=== PATIENT | female | born 1985 | race Caucasian/White ===

== ENCOUNTER 2022-09-19 15:38 | Day surgery (SDC) | payer OTHER ==
[2022-09-19 16:20] VITALS: BMI 31.1
[2022-09-19] MEDS ORDERED: hydrALAZINE 20 MG/ML VIAL SLOW IVP PRN (16:47)
[2022-09-19 18:13] LABS: #Monocytes 1.2 10x3/uL (0.0-1.1); #Neutrophils 10.3 10x3/uL (1.5-8.4); %Basophils 0.3 % (0.0-2.0); %Eosinophils 0.2 % (0.0-6.0); %Lymphocytes 14.5 % (18.0-47.0); Hemoglobin 12.3 g/dL (12.0-15.5); Mean Corpuscular HGB CONC 33.9 g/dL (32.0-36.0); Mean Corpuscular Hemoglobin 32.7 pg (27.0-33.0); Mean Corpuscular Volume 96.5 fl (81.6-98.3); Mean Platelet Volume 10.1 fl (7.4-10.4); Platelet Count 221 10x3/uL (150-450); RBC Distribution Width 13.7 % (11.5-14.5); Red Blood Cell (RBC) Count 3.76 10x6/uL (3.90-5.03); White Blood Cell (WBC) Count 13.7 10x3/uL (3.5-10.5)
[2022-09-19 18:23] LABS: ALT (SGPT) 21 U/L (8-55); AST (SGOT) 21 U/L (5-34); Albumin 3.6 g/dL (3.5-5.0); Alkaline Phosphatase 99 U/L (40-110); Anion Gap 13 mmol/L (10-20); BUN (Urea Nitrogen) 13 mg/dL (7.0-18.7); Bilirubin, Total 0.3 mg/dL (0.2-1.2); Calc. Creatinine Clearance 162 mL/min (70-130); Carbon Dioxide 22 mmol/L (22-29); Chloride 104 mmol/L (98-107); Estimated GFR 110; Globulin 3.2 g/dL (2.4-3.5); Glucose 79 mg/dL (70-105); Potassium 4.4 mmol/L (3.5-5.1); Protein, Total 6.8 g/dL (6.0-8.3); Sodium 135 mmol/L (136-145)
[2022-09-19 18:42] LABS: Bilirubin Neg (Negative); Blood, Urine Negative (Negative); Clarity Clear (Clear); Glucose, Urine (Dipstick) Normal (Negative); Ketone, Urine Negative (Negative); Leukocyte Negative (Negative); Nitrite Negative (Negative); Protein, Urine (Dipstick) Negative (Neg-Trace); Urobilinogen Normal mg/dL (Less than 2); pH, Urine 6.5 (5.0-9.0)
== END 2022-09-19 20:17 | disposition home or self-care (01) ==
LOC: CSHLD/OP 15:38
PROVIDERS: ATTEND Obstetrics & Gynecology
DX: O36.8130 Decreased fetal movements, third trimester, not applicable or unspecified (principal); O99.891 Other specified diseases and conditions complicating pregnancy; R19.7 Diarrhea, unspecified; Z88.8 Allergy status to other drugs, medicaments and biological substances; Z3A.31 31 weeks gestation of pregnancy
CPT/HCPCS: 36415; 76819; 80053; 81003; 85025; 99283

== ENCOUNTER 2022-11-11 13:03 | Inpatient (IN) | payer OTHER ==
[2022-11-12] MEDS ORDERED: hydrALAZINE 20 MG/ML VIAL SLOW IVP PRN (01:28)
[2022-11-12] MEDS ORDERED: Diphenoxylate HCl/Atropine Tablet PO PRN ×2 (01:28)
[2022-11-12] MEDS ORDERED: Methylergonovine 0.2 MG/ML VIAL IM PRN (01:28)
[2022-11-12] MEDS ORDERED: Ondansetron PF 4 MG/2 ML Vial IVP PRN ×2 (01:28→16:41)
[2022-11-12] MEDS ORDERED: Zolpidem Tartrate 5 MG TAB PO PRN (01:28)
[2022-11-12] MEDS ORDERED: Ibuprofen 800 MG TAB PO PRN (01:28)
[2022-11-12] MEDS ORDERED: Carboprost 250 MCG/ML AMP IM PRN (01:28)
[2022-11-12] MEDS ORDERED: Lidocaine 1% (PF) 30 ML VIAL SC PRN (01:28)
[2022-11-12] MEDS ORDERED: Tranexamic Acid 1,000 MG/10 ML VIAL IVP PRN (01:28)
[2022-11-12] MEDS ORDERED: Promethazine HCl 25 MG/ML VIAL IM PRN ×2 (01:28→16:41)
[2022-11-12] MEDS ORDERED: HYDROcodone/Acetaminophen 5/325 mg Tablet PO PRN ×2 (01:28)
[2022-11-12] MEDS ORDERED: Butorphanol Tartrate 1 MG/ML VIAL SLOW IVP PRN (01:28)
[2022-11-12] MEDS ORDERED: Acetaminophen 500 MG TAB PO PRN (01:28)
[2022-11-12] MEDS ORDERED: Misoprostol 200 MCG TAB PR PRN (01:28)
[2022-11-12 01:29] VITALS: BMI 34.2
[2022-11-12] MEDS ORDERED: NS w/ Oxytocin 30 units 500 ML IV SCH (01:30)
[2022-11-12 02:07] LABS: Hemoglobin 12.9 g/dL (12.0-15.5); Mean Corpuscular HGB CONC 34.8 g/dL (32.0-36.0); Mean Corpuscular Hemoglobin 33.3 pg (27.0-33.0); Mean Corpuscular Volume 95.9 fl (81.6-98.3); Mean Platelet Volume 11.2 fl (7.4-10.4); Platelet Count 233 10x3/uL (150-450); RBC Distribution Width 13.7 % (11.5-14.5); Red Blood Cell (RBC) Count 3.87 10x6/uL (3.90-5.03); White Blood Cell (WBC) Count 10.8 10x3/uL (3.5-10.5)
[2022-11-12] MEDS: Misoprostol 100 MCG TAB VAG SCH (02:29)
[2022-11-12 02:40] LABS: HBSAg Index 0.12 S/CO (0-0.99); Hep B Surf Ag - L&D Non-Reactive S/CO (NonReactive)
[2022-11-12 02:42] LABS: Syphilis Antibody Nonreactive (Nonreactive); Syphilis Antibody Index 0.06 S/CO (<1.00 Non-Reactive)
[2022-11-12] MEDS ORDERED: Bupivacaine HCl 0.5%/Epinephrine 1:200,000/PF 30 ml Vial ONE (08:00)
[2022-11-12] MEDS ORDERED: ePHEDrine Sulfate 50 MG/10 ML VIAL ONE (08:00)
[2022-11-12] MEDS ORDERED: Bupivacaine/Epinephrine 0.25% 30 ML VIAL ONE (08:00)
[2022-11-12] MEDS ORDERED: Fentanyl 2 mcg/Bup 0.1% Cadd 100 ML ONE (15:50)
[2022-11-12] MEDS ORDERED: Fentanyl 100 MCG/2 ML VIAL ONE (16:03)
[2022-11-12] MEDS ORDERED: Acetaminophen 325 MG TAB PO PRN (16:41)
[2022-11-12] MEDS ORDERED: ePHEDrine Sulfate 50 MG/10 ML VIAL SLOW IVP PRN (16:41)
[2022-11-12] MEDS ORDERED: Naloxone HCl 0.4 mg/ml Vial IVP PRN ×2 (16:41)
[2022-11-12] MEDS ORDERED: Lactated Ringer's 500 ML IV PRN (16:41)
[2022-11-12] MEDS ORDERED: Moisturizing Cream (Eucerin) 113 GM JAR TOP PRN (16:41)
[2022-11-12] MEDS ORDERED: Communication Order-Pharmacy FS SCH (16:45)
[2022-11-12] MEDS: Fentanyl 2 mcg/Bupivacaine 0.1% Cassette 100 ML EPIDURAL SCH (22:50)
[2022-11-13] MEDS: Fentanyl 2 mcg/Bupivacaine 0.1% Cassette 100 ML EPIDURAL SCH (04:00)
[2022-11-13] MEDS ORDERED: CEFAZOLIN 1 GM VIAL ONE (04:49)
[2022-11-13] MEDS ORDERED: Azithromycin 500 MG VIAL ONE (04:50)
[2022-11-13] MEDS ORDERED: Famotidine/PF 20 mg/2ml Vial ONE (04:50)
[2022-11-13] MEDS: Lactated Ringer's 1,000 ML IV SCH ×4 (04:58→17:27)
[2022-11-13] MEDS ORDERED: Oxytocin 10 UNITS/ML VIAL ONE (06:08)
[2022-11-13] MEDS ORDERED: Ketorolac Tromethamine 30 MG/ML VIAL ONE (06:09)
[2022-11-13] MEDS ORDERED: Dexamethasone 4 mg/ml Vial ONE (06:09)
[2022-11-13] MEDS ORDERED: Ondansetron PF 4 MG/2 ML Vial ONE (06:09)
[2022-11-13] MEDS ORDERED: Promethazine HCl 25 MG/ML VIAL IM PRN ×2 (06:36→06:59)
[2022-11-13] MEDS ORDERED: Naloxone HCl 0.4 mg/ml Vial IVP PRN ×2 (06:36)
[2022-11-13] MEDS ORDERED: Promethazine HCl 25 MG SUPP PR PRN (06:36)
[2022-11-13] MEDS ORDERED: Naloxone HCl 0.4 mg/ml Vial IV PRN (06:36)
[2022-11-13] MEDS ORDERED: Moisturizing Cream (Eucerin) 113 GM JAR TOP PRN (06:36)
[2022-11-13] MEDS ORDERED: Fentanyl 100 MCG/2 ML VIAL SLOW IVP PRN (06:36)
[2022-11-13] MEDS ORDERED: Ondansetron PF 4 MG/2 ML Vial IVP PRN (06:36)
[2022-11-13] MEDS ORDERED: Meperidine HCl/PF 25 MG/ML VIAL SLOW IVP PRN (06:36)
[2022-11-13] MEDS ORDERED: Methylergonovine 0.2 MG/ML VIAL ONE (06:36)
[2022-11-13] MEDS ORDERED: Ondansetron HCl/PF 4 MG/2 ML Vial IVP PRN (06:36)
[2022-11-13] MEDS ORDERED: Ketorolac Tromethamine 30 MG/ML VIAL IVP SCH (06:45)
[2022-11-13] MEDS ORDERED: Communication Order-Pharmacy FS SCH (06:45)
[2022-11-13] MEDS ORDERED: Morphine PF 10 MG/10 ML VIAL ONE (06:51)
[2022-11-13] MEDS ORDERED: hydrALAZINE 20 MG/ML VIAL SLOW IVP PRN (06:59)
[2022-11-13] MEDS ORDERED: Bisacodyl 10 MG SUPP PR PRN (06:59)
[2022-11-13] MEDS ORDERED: Boostrix 0.5 ML (Tdap) VIAL (>/=7 yrs of age) IM ONE (06:59)
[2022-11-13] MEDS ORDERED: Methylergonovine 0.2 MG/ML VIAL IM PRN (06:59)
[2022-11-13] MEDS ORDERED: Simethicone Chewable 80 MG TAB PO PRN (06:59)
[2022-11-13] MEDS ORDERED: Misoprostol 200 MCG TAB PR PRN (06:59)
[2022-11-13] MEDS ORDERED: NS w/ Oxytocin 30 units 500 ML IV SCH (07:00)
[2022-11-13] MEDS ORDERED: Carboprost 250 MCG/ML AMP IM PRN (07:10)
[2022-11-13] MEDS: Ferrous Sulfate 325 MG TAB PO SCH ×2 (12:58→21:48)
[2022-11-13] MEDS: Docusate 100 MG CAP PO SCH ×2 (12:58→23:05)
[2022-11-13] MEDS: Prenatal Vitamin 1 TAB PO SCH (12:58)
[2022-11-13] MEDS: Misoprostol 100 MCG TAB VAG SCH (13:00)
[2022-11-13] MEDS: Ketorolac Tromethamine 30 MG/ML VIAL IVP PRN ×2 (17:28→23:08)
[2022-11-13] MEDS ORDERED: Diphenoxylate HCl/Atropine Tablet PO PRN (18:45)
[2022-11-13] MEDS ORDERED: Zolpidem Tartrate 5 MG TAB PO PRN (18:45)
[2022-11-13] MEDS: HYDROcodone/Acetaminophen 5/325 mg Tablet PO SCH (23:13)
[2022-11-14] MEDS: Lactated Ringer's 1,000 ML IV SCH ×3 (03:31→17:31)
[2022-11-14] MEDS: HYDROcodone/Acetaminophen 5/325 mg Tablet PO SCH ×4 (03:32→17:29)
[2022-11-14 04:05] LABS: Hemoglobin 10.9 g/dL (12.0-15.5); Mean Corpuscular HGB CONC 33.9 g/dL (32.0-36.0); Mean Corpuscular Volume 97.6 fl (81.6-98.3); Mean Platelet Volume 11.4 fl (7.4-10.4); Platelet Count 184 10x3/uL (150-450); White Blood Cell (WBC) Count 16.4 10x3/uL (3.5-10.5)
[2022-11-14] MEDS: Ferrous Sulfate 325 MG TAB PO SCH ×2 (08:32→21:40)
[2022-11-14] MEDS: Ibuprofen 800 MG TAB PO SCH ×2 (09:58→17:29)
[2022-11-14] MEDS: Prenatal Vitamin 1 TAB PO SCH (09:59)
[2022-11-14] MEDS: Docusate 100 MG CAP PO SCH ×2 (09:59→21:41)
[2022-11-15] MEDS: Lactated Ringer's 1,000 ML IV SCH (01:43)
[2022-11-15] MEDS: Ibuprofen 800 MG TAB PO SCH (01:45)
[2022-11-15] MEDS: HYDROcodone/Acetaminophen 5/325 mg Tablet PO SCH ×3 (02:41→08:18)
[2022-11-15] MEDS: Docusate 100 MG CAP PO SCH (08:08)
[2022-11-15] MEDS: Prenatal Vitamin 1 TAB PO SCH (08:08)
[2022-11-15 08:44] VITALS: BP 117/60; TEMP 97.9
== END 2022-11-15 11:00 | disposition home or self-care (01) | DRG 787 ==
LOC: CSHLD 11-12 01:06 → CSHPP 11-13 13:30
PROVIDERS: ADMIT Obstetrics & Gynecology; ATTEND Obstetrics & Gynecology
PROC: 10D00Z1 Extraction of Products of Conception, Low, Open Approach (ICD-10-PCS; principal; 2022-11-13)
DX: O64.0XX0 Obstructed labor due to incomplete rotation of fetal head, not applicable or unspecified (principal); D62 Acute posthemorrhagic anemia; Z3A.39 39 weeks gestation of pregnancy; Z37.0 Single live birth; Z88.8 Allergy status to other drugs, medicaments and biological substances; O99.03 Anemia complicating the puerperium
CPT/HCPCS: 36415; 51702; 85027; 86780; 86850; 86900; 86901; 87340; J1100; J1885; J2210; J2274; J2405; J2590; S0028

== ENCOUNTER 2024-02-04 10:11 | Day surgery (SDC) | payer OTHER ==
[2024-02-04 10:40] VITALS: BMI 31.1
[2024-02-04] MEDS ORDERED: hydrALAZINE 20 MG/ML VIAL SLOW IVP PRN (11:02)
== END 2024-02-04 12:30 | disposition home or self-care (01) ==
LOC: CSHLD/OP 10:11
PROVIDERS: ATTEND Obstetrics & Gynecology
DX: O36.8120 Decreased fetal movements, second trimester, not applicable or unspecified (principal); Z3A.26 26 weeks gestation of pregnancy; Z79.899 Other long term (current) drug therapy; Z88.8 Allergy status to other drugs, medicaments and biological substances
CPT/HCPCS: 76815

== ENCOUNTER 2024-05-10 11:18 | Inpatient (IN) | payer OTHER ==
[2024-05-16] MEDS ORDERED: Bupivacaine/Epinephrine 0.25% 30 ML VIAL ONE (08:00)
[2024-05-16] MEDS ORDERED: Bupivacaine 0.25% HCL 30 ML VIAL ONE (08:00)
[2024-05-16] MEDS ORDERED: Lidocaine 1% (PF) 30 ML VIAL SC PRN (20:33)
[2024-05-16] MEDS ORDERED: fentaNYL 50 mcg/mL 1 mL Vial SLOW IVP PRN (20:33)
[2024-05-16] MEDS ORDERED: hydrALAZINE 20 MG/ML VIAL SLOW IVP PRN (20:33)
[2024-05-16] MEDS ORDERED: HYDROcodone/Acetaminophen 5/325 mg Tablet PO PRN ×2 (20:33)
[2024-05-16] MEDS ORDERED: Ibuprofen 800 MG TAB PO PRN (20:33)
[2024-05-16] MEDS ORDERED: Ondansetron PF 4 MG/2 ML Vial IVP PRN (20:33)
[2024-05-16] MEDS ORDERED: Promethazine HCl 25 MG/ML VIAL IM PRN (20:33)
[2024-05-16 20:52] VITALS: BMI 33.5
[2024-05-16 21:18] LABS: Hematocrit 35.5 % (34.9-44.5); Hemoglobin 12.3 g/dL (12.0-15.5); Mean Corpuscular HGB CONC 34.6 g/dL (32.0-36.0); Mean Corpuscular Hemoglobin 32.4 pg (27.0-33.0); Mean Corpuscular Volume 93.4 fL (81.6-98.3); Mean Platelet Volume 10.6 fL (7.4-10.4); Platelet Count 255 10x3/uL (150-450); RBC Distribution Width 13.9 % (11.5-14.5); White Blood Cell (WBC) Count 11.2 10x3/uL (3.5-10.5)
[2024-05-16 22:02] LABS: HBsAg Index 0.19 S/CO (0-0.99); Hep B Surf Ag - L&D Non-Reactive S/CO (NonReactive)
[2024-05-16 22:04] LABS: Syphilis Antibody Nonreactive (Nonreactive); Syphilis Antibody Index 0.05 S/CO (<1.00 Non-Reactive)
[2024-05-17] MEDS: Oxytocin 30 units/NS 500 ML 500 ML IV SCH ×2 (00:36→17:32)
[2024-05-17] MEDS: Lactated Ringer's 1,000 ML IV SCH (00:38)
[2024-05-17] MEDS: fentaNYL/Ropivacaine Epidural 100 ML ONE (06:03)
[2024-05-17] MEDS ORDERED: Acetaminophen 325 MG TAB PO PRN (14:29)
[2024-05-17] MEDS ORDERED: Lactated Ringer's 500 ML IV PRN (14:29)
[2024-05-17] MEDS ORDERED: Moisturizing Cream (Eucerin) 113 GM JAR TOP PRN ×2 (14:29→16:52)
[2024-05-17] MEDS ORDERED: Ondansetron PF 4 MG/2 ML Vial IVP PRN ×3 (14:29→16:52)
[2024-05-17] MEDS ORDERED: Promethazine HCl 25 MG/ML VIAL IM PRN ×2 (14:29→16:52)
[2024-05-17] MEDS ORDERED: ePHEDrine Sulfate 50 MG/10 ML VIAL SLOW IVP PRN (14:29)
[2024-05-17] MEDS ORDERED: diphenhydrAMINE 50 MG/ML VIAL IVP PRN (14:29)
[2024-05-17] MEDS ORDERED: Naloxone HCl 0.4 mg/ml Vial IVP PRN ×4 (14:29→16:52)
[2024-05-17] MEDS ORDERED: Communication Order-Pharmacy FS SCH ×2 (14:30→17:00)
[2024-05-17] MEDS: fentaNYL 2 mcg/Ropivacaine 0.2% Epidural 100 ML CADD EPIDURAL SCH (14:30)
[2024-05-17] MEDS ORDERED: Bicitra 30 ML UDCUP PO PRN (15:36)
[2024-05-17] MEDS ORDERED: CEFAZOLIN 2 GM in Sodium Chloride 0.9% 100 ML IVPB SCH (15:45)
[2024-05-17] MEDS: Azithromycin 500 MG in Sodium Chloride 0.9% 250 ML 250 ML IVPB SCH (15:52)
[2024-05-17] MEDS: Famotidine/PF 20 mg/2ml Vial SLOW IVP PRN (15:54)
[2024-05-17] MEDS ORDERED: Meperidine HCl/PF 25 MG (1 mL) VIAL SLOW IVP PRN (16:52)
[2024-05-17] MEDS ORDERED: fentaNYL 50 mcg/mL 1 mL Vial SLOW IVP PRN (16:52)
[2024-05-17] MEDS ORDERED: Naloxone HCl 0.4 mg/ml Vial IV PRN (16:52)
[2024-05-17] MEDS ORDERED: Bisacodyl 10 MG SUPP PR PRN (20:00)
[2024-05-17] MEDS ORDERED: hydrALAZINE 20 MG/ML VIAL SLOW IVP PRN (20:00)
[2024-05-17] MEDS ORDERED: Oxytocin 30 units/NS 500 ML 500 ML IV SCH (20:00)
[2024-05-17] MEDS ORDERED: Simethicone Chewable 80 MG TAB PO PRN (20:00)
[2024-05-17] MEDS ORDERED: Lanolin Ointment 7 GM TUBE TOP PRN (20:00)
[2024-05-17] MEDS: Dexamethasone 10 MG/ML VIAL ONE (20:07)
[2024-05-17] MEDS: Dexmedetomidine 200 MCG/2 ML VIAL ONE (20:07)
[2024-05-17] MEDS: Ondansetron PF 4 MG/2 ML Vial ONE (20:09)
[2024-05-17] MEDS: Ketorolac Tromethamine 30 MG (1 mL) VIAL ONE (20:09)
[2024-05-17] MEDS: Morphine PF 10 MG/10 ML VIAL ONE (20:10)
[2024-05-17] MEDS: Erythromycin Base 0.5% Oint 1 GM TUBE ONE (20:10)
[2024-05-17] MEDS: Phytonadione Neonatal 1 MG/0.5 ML AMP ONE (20:10)
[2024-05-17] MEDS: Promethazine HCl 25 MG/ML VIAL ONE (20:10)
[2024-05-17] MEDS: Ferrous Sulfate 325 MG TAB PO SCH (21:03)
[2024-05-17] MEDS: Docusate 100 MG CAP PO SCH (22:30)
[2024-05-17] MEDS: Ketorolac Tromethamine 30 MG (1 mL) VIAL IVP SCH (22:44)
[2024-05-18 04:18] LABS: Hematocrit 28.5 % (34.9-44.5); Hemoglobin 9.5 g/dL (12.0-15.5); Mean Corpuscular HGB CONC 33.3 g/dL (32.0-36.0); Mean Corpuscular Hemoglobin 32.1 pg (27.0-33.0); Mean Corpuscular Volume 96.3 fL (81.6-98.3); Mean Platelet Volume 10.6 fL (7.4-10.4); Platelet Count 205 10x3/uL (150-450); Red Blood Cell (RBC) Count 2.96 10x6/uL (3.90-5.03); White Blood Cell (WBC) Count 20.8 10x3/uL (3.5-10.5)
[2024-05-18] MEDS: fentaNYL/Ropivacaine Epidural 100 ML ONE (07:18)
[2024-05-18] MEDS: Boostrix 0.5 ML (Tdap) VIAL (>/=7 yrs of age) IM ONE (07:19)
[2024-05-18] MEDS: Prenatal Vitamin 1 TAB PO SCH (10:16)
[2024-05-18] MEDS: HYDROcodone/Acetaminophen 5/325 mg Tablet PO PRN ×2 (13:57→23:22)
[2024-05-18] MEDS: Ibuprofen 800 MG TAB PO SCH (21:25)
[2024-05-19 07:38] VITALS: BP 110/70; TEMP 97.8
== END 2024-05-19 11:10 | disposition home or self-care (01) | DRG 788 ==
LOC: CSHLD 05-16 19:56 → CSHPP 05-17 19:25
PROVIDERS: ADMIT Obstetrics & Gynecology; ATTEND Obstetrics & Gynecology
PROC: 10D00Z1 Extraction of Products of Conception, Low, Open Approach (ICD-10-PCS; principal; 2024-05-17)
PROC: 10907ZC Drainage of Amniotic Fluid, Therapeutic from Products of Conception, Via Natural or Artificial Opening (ICD-10-PCS; 2024-05-17)
PROC: 10H07YZ Insertion of Other Device into Products of Conception, Via Natural or Artificial Opening (ICD-10-PCS; 2024-05-17)
DX: O34.211 Maternal care for low transverse scar from previous cesarean delivery (principal); O48.0 Post-term pregnancy; Z3A.40 40 weeks gestation of pregnancy; Z37.0 Single live birth; O66.40 Failed trial of labor, unspecified; O09.523 Supervision of elderly multigravida, third trimester
CPT/HCPCS: 36415; 51702; 85027; 86780; 86850; 86900; 86901; 87340; 99285; J0456; J0665; J1100; J1885; J2274; J2405; J2550; J2590; J3490; J7050; J7120